=== PATIENT | male | born 1935 | race Caucasian/White ===

== ENCOUNTER 2024-10-26 21:14 | Emergency (ER) | payer MEDICARE, BC, SELFPAY ==
[2024-10-26 21:15] VITALS: BMI 25.1
[2024-10-26 21:26] VITALS: BP 202/84; BP 203/92; PULSE 90; RESP 18; TEMP 36.7; O2SAT 96
--- NOTE | 2024-10-26 21:34 | XR_ITS ---
Examination: CT brain head without contrast. 2-D sagittal coronal reconstructions Date and time of exam:October 26, 2024 at 10:10 PM Indications: Ground-level fall today with injury to the head, head pain CTDI: vol (mGy):40.9 DLP: (mGycm):970 Technique: Multiple CT axial sections of the brain have been obtained, 5 mm slice thickness. Contrast has not been administered. 2-D sagittal, coronal reconstructions have been obtained Low dose protocols were performed. One or more of the following dose reduction techniques were used; automated exposure control, adjustment of the mA and/or KV according to patient size, use of iterative reconstruction technique. Findings: No significant ventricular enlargement. Intra-axial or extra-axial hemorrhage density is not seen. No mass effect or midline shift Basal cisterns are not remarkable. Fourth ventricle is midline. Cranial vault intact. Impression: Negative for acute hemorrhage, mass effect or midline shift
--- NOTE | 2024-10-26 21:34 | XR_ITS ---
Examination: CT cervical spine without contrast 2-D sagittal reconstructions 2-D coronal reconstructions 3-D reconstructions. Exam date and time:October 26, 2024 1010 hrs. Indications: Ground-level fall today with injury to the neck, neck pain CTDI:vol (mGy) 8.14 DLP: (mGycm) 153 Technique: Multiple 2 mm axial sections of the cervical spine have been obtained. The coronal and sagittal reconstructions have been obtained. 3-D reconstructions have been obtained. Low dose protocols were performed. One or more of the following dose reduction techniques were used; automated exposure control, adjustment of the mA and/or KV according to patient size, use of iterative reconstruction technique. Findings: Axial sections demonstrate intact base of the skull. C1 exhibit satisfactory relationship to the odontoid. No acute cervical vertebral body fracture seen. Alignment posterior spinous processes satisfactory. Laminectomies C3-C5 Impression: No acute cervical fracture.
--- NOTE | 2024-10-26 21:47 | PD.EDRME ---
Rapid Medical Screening Exam RME Arrival date/time: 10/26/24 21:14 89 year old female present to Ed for c/o GLF and elevated bp I have greeted and performed a focused initial assessment of this patient. A comprehensive ED assessment and evaluation of the patient, analysis of all test results, and completion of the medical decision making process will be conducted by additional ED providers. Chief Complaint: Fall Time Seen by Provider: 10/26/24 21:20 Vital signs: Vital Signs Temperature 98.0 F 10/26/24 21:26 Pulse Rate 90 10/26/24 21:26 Respiratory Rate 18 10/26/24 21:26 Blood Pressure 202/84 H 10/26/24 21:26 Pulse Oximetry (%) 96 10/26/24 21:26 Oxygen Delivery Method Room Air 10/26/24 21:26
[2024-10-26 21:57] LABS: Basophils % (Auto) 0 % (0-2.5); Eosinophils # (Auto) 0.1 Thou/mm3 (0.0-0.5); Eosinophils % (Auto) 1 % (0-10); Hemoglobin 14.7 g/dL (13.5-16.0); Immature Granulocytes % (Auto) 1 % (0-0); Immature Granulocytes Auto 0.05 Thou/mm3 (0.00-0.00); Lymphocytes # (Auto) 1.2 Thou/mm3 (1.0-4.8); Lymphocytes % (Auto) 13 % (10-50); Mean Corpuscular HGB Conc 33.4 g/dl (31.0-37.0); Mean Corpuscular Hemoglobin 30.8 pg (25.0-35.0); Mean Corpuscular Volume 92 fL (80-100); Monocytes % (Auto) 11 % (0-12); Neutrophils # (Auto) 6.7 Thou/mm3 (1.8-7.7); Neutrophils % (Auto) 74 % (37-80); Nucleated Red Blood Cell % 0 /100 WBC (0); Platelet Count 157 Thou/mm3 (140-440); RDW Standard Deviation 41.9 fL (35.1-43.9); Red Blood Count 4.77 Miln/mm3 (4.50-5.90); White Blood Count 9.1 Thou/mm3 (3.8-10.6)
[2024-10-26 22:08] LABS: Prothrombin Time 10.9 Seconds (9.0-12.2)
[2024-10-26 22:16] LABS: Alanine Aminotransferase 16 U/L (10-49); Albumin, Serum 4.4 gm/dL (3.4-4.8); Albumin/Globulin Ratio 1.5 (1.2-2.2); Alkaline Phosphatase 110 U/L (46-116); Anion Gap 7 (7-16); Aspartate Amino Transferase 27 U/L (0-34); BUN/Creatinine Ratio 25 Ratio (12-20); Bilirubin,Total 0.5 mg/dL (0.3-1.2); Blood Urea Nitrogen 20 mg/dL (9-23); Calcium 9.3 mg/dL (8.3-10.6); Calcium (Corrected) 9.3 mg/dL (8.5-10.1); Carbon Dioxide 26.7 mMol/L (20.0-31.0); Chloride 98 mMol/L (98-107); Creatinine (Component) 0.8 mg/dL (0.6-1.3); Estimated Creatinine Clearance 63.8 mL/min (>60); Glucose 147 mg/dL (74-106); Osmolality,Calculated 270 (275-295); Sodium 132 mMol/L (136-145); Total Protein 7.4 gm/dL (5.7-8.2); eGFR > 60 See Note
[2024-10-26 23:36] VITALS: BP 192/82
[2024-10-26 23:44] VITALS: BP 198/94; BP 202/92; PULSE 78; RESP 18; TEMP 36.8; O2SAT 97
[2024-10-27 00:20] VITALS: BP 199/128; PULSE 80; RESP 19; TEMP 36.6; O2SAT 97
[2024-10-27 01:20] VITALS: BP 190/87; PULSE 86
[2024-10-27] MEDS: hydrALAZINE HCL 25 MG TABLET PO (01:20)
[2024-10-27 02:15] VITALS: BP 181/79; PULSE 78; RESP 20; O2SAT 98
[2024-10-27 03:16] VITALS: BP 188/84; PULSE 81
--- NOTE | 2024-10-27 03:41 | EDNOTE_ITS ---
ED Fall Injury RME/HPI General Chief Complaint: Fall Stated Complaint: FELL, BLOOD PRESSURE HIGH Time Seen by Provider: 10/26/24 21:20 Source: patient and family Arrival date/time: 10/26/24 21:14 Mode of arrival: ambulatory Limitations: no limitations RME / HPI RME / HPI Narrative: 10/26/24 21:14 89 year old female present to Ed for c/o GLF and elevated bp I have greeted and performed a focused initial assessment of this patient. A comprehensive ED assessment and evaluation of the patient, analysis of all test results, and completion of the medical decision making process will be conducted by additional ED providers. --- DR. GAFFNEY MAIN ED EVALUATION: 89-year-old male who presents to the ED for evaluation due to concerns of his elevated blood pressure. Patient notes at about 130AM yesterday, he slipped and fell, hitting his head on the washer. No LOC. Patient reports he then checked his blood pressure and noted it was elevated. His head also felt heavy therefore he decided to come in to be further evaluated. Denies any pain. Patient has a scheduled follow-up with Dr. Peters on Monday10/28/24. Related Data Home Medications ?Medication ?Instructions ?Recorded ?Confirmed telmisartan 80 mg tablet (Micardis) 80 mg PO QDAY 07/20/23 06/11/24 atorvastatin 20 mg tablet 20 mg PO QDAY 03/12/24 06/11/24 cilostazol 50 mg tablet 50 mg PO BID 03/12/24 06/11/24 tamsulosin 0.4 mg capsule 0.8 mg PO QHS 03/12/24 06/11/24 Previous Rx's ?Medication ?Instructions ?Recorded clonidine HCl 0.1 mg tablet 0.1 mg PO BID PRN hypertensive 01/04/24 emergency #30 tabs Allergies Allergy/AdvReac Type Severity Reaction Status Date / Time No Known Allergies Allergy Verified 06/11/24 10:34 Review of Systems Review of Systems Systems Reviewed: All systems reviewed, normal except as documented Past Medical History Past Medical History NEUROLOGIC: Negative Neurological Disorders or Seizures CARDIAC: Positive Cardiac Disorders, Edema and Hypertension; Negative Hypercholesterolemia or Congestive Heart Failure RESPIRATORY: Negative Chronic Obstructive Pulmonary Disease (COPD) or Asthma GASTROINTESTINAL: Negative Gastrointestinal Disorders GENITOURINARY: Negative Genitourinary Disorders or Renal Disease MUSCULOSKELETAL: Positive Musculoskeletal Disorders and Arthritis ENT: Positive Cataracts; Negative Glaucoma, Retinal Detachment, Macular Degeneration or Deafness ENDOCRINE: Negative Endocrine Disorders, Diabetes Mellitus Type 1 or Diabetes Mellitus Type 2 HEMATOLOGIC: Negative Blood Disorders, Anemia, Sickle Cell Disease or Clotting Problems OTHER HISTORY: Positive Falls, Chicken Pox, Measles and Mumps; Negative Hospitalization, Autoimmune Disease, Shingles, Blood Transfusions, Blood Transfusion Reaction, Anesthesia Reactions, Chemotherapy, Radiation Therapy, MRSA or Cancer Family History FAMILY HISTORY: Positive Family Psychiatric Problems, Family Cardiac Disorders, Family Gastrointestinal Problems, Family Cancer and Family Surgery; Negative Family Respiratory Disorders or Family Anesthesia Reaction Surgical History SURGICAL: Negative Cardiac Surgery, Endocrine Surgery, Ear Surgery, Abdominal Surgery, Nephrectomy, Joint Replacement or Neurologic Surgery Social History SMOKING STATUS: Never smoker SUBSTANCE USE: does not use ED Exam Narrative Physical exam: Moving all extremities. No facial drooping. General Limitations: Present no limitations General appearance: Present alert and in no apparent distress Head Head exam: Present atraumatic, normocephalic and normal inspection Eye Eye exam: Present normal appearance, PERRL and EOMI ENT ENT exam: Present normal exam, normal oropharynx, TM's normal bilaterally and normal external ear exam Neck Neck exam: Present normal inspection and full ROM Chest Chest inspection: Present normal inspection and symmetric chest wall rise Respiratory Respiratory exam: Present normal lung sounds bilaterally Cardiovascular Cardiovascular exam: Present regular rate, normal rhythm and normal heart sounds Abdominal Exam Abdominal exam: Present normal bowel sounds Extremities Exam Extremities exam: Present normal inspection and full ROM Back Exam Back exam: Present normal inspection and full ROM Neurological Exam Neurological exam: Present alert, oriented X3 and CN II-XII intact Psychiatric Psychiatric exam: Present normal affect and normal mood; Absent depressed Skin Skin exam: Present warm, dry, intact and normal color Course Quality Measures none Orders Category Date Time Status CT cervical spine wo con Stat Exams 10/26/24 21:[address] head/brain wo con Stat Exams 10/26/24 21:34 Completed CBC Stat Lab 10/26/24 21:45 Completed CMP [Comprehensive Metabolic Panel] Stat Lab 10/26/24 21:45 Completed INR [Prothrombin Time with INR] Stat Lab 10/26/24 21:45 Completed LORazepam [Ativan] Med 10/27/24 03:40 Discontinued 2 mg PO X1 ONE hydrALAZINE HCL [Apresoline] Med 10/27/24 00:41 Discontinued 25 mg PO X1 ONE Vital Signs Vital signs: Vital Signs Temperature 98.0 F 10/26/24 21:26 Pulse Rate 90 10/26/24 21:26 Respiratory Rate 18 10/26/24 21:26 Blood Pressure 202/84 H 10/26/24 21:26 Pulse Oximetry (%) 96 10/26/24 21:26 Oxygen Delivery Method Room Air 10/26/24 21:26 Fall MDM Narrative MDM Narrative:: ? Scribe Attestation: I, Kalina Merino, am scribing for and in the presence of Dr. Hall. Provider Notation: Although this document has been carefully reviewed, there may still be some phonetic and other typographical errors. These errors are purely grammatical due to imperfections in the software program and should not be construed in any way to compromise the substance of the patient's medical care during this visit. Patient data External records reviewed:: [facility] previous records Clinical information provided by:: patient Social determinants that could affect healthcare access:: none Patient has the following chronic illnesses:: Hypertension, Arthritis How is presenting disease/condition affected by chronic disease/condition?: uneffected by Evaluation data The following diagnostics were reviewed and interpreted by me:: lab results and radiology exam(s) Lab and/or radiology exams considered but not ordered:: None Interpretation Summary: I personally reviewed the radiology data and agree with the radiologist's interpretation. Examination: CT cervical spine without contrast Exam date and time:October 26, 2024 1010 hrs. Indications: Ground-level fall today with injury to the neck, neck pain Findings: Axial sections demonstrate intact base of the skull. C1 exhibit satisfactory relationship to the odontoid. No acute cervical vertebral body fracture seen. Alignment posterior spinous processes satisfactory. Laminectomies C3-C5 Impression: No acute cervical fracture. Dictated By: Sav Young MD Examination: CT brain head without contrast. Date and time of exam:October 26, 2024 at 10:10 PM Indications: Ground-level fall today with injury to the head, head pain Findings: No significant ventricular enlargement. Intra-axial or extra-axial hemorrhage density is not seen. No mass effect or midline shift Basal cisterns are not remarkable. Fourth ventricle is midline. Cranial vault intact. Impression: Negative for acute hemorrhage, mass effect or midline shift Dictated By: Sav Young MD Medications / Prescriptions Medications or Prescriptions considered but not ordered:: None Medication administrations:: Medication Administration History Discontinued Medications Hydralazine HCl (Hydralazine Hcl 25 Mg Tablet) 25 mg PO X1 ONE Stop: 10/27/24 00:42 Last Admin: 10/27/24 01:20 Dose: 25 mg Documented By: SYLVIA Lorazepam (Lorazepam 0.5 Mg Tablet) 2 mg PO X1 ONE Stop: 10/27/24 03:41 Last Admin: 10/27/24 03:46 Dose: 2 mg Documented By: SYLVIA As above Consultations Consultation(s) initiated? (list below): No Diagnosis Fall Differential Diagnosis: other (Hypertensive urgency, anxiety, pain) Most likely diagnosis given after review of the tests above:: See clinical impression below Admission Indicated Admission indicated?: not indicated Admission Request Was there a request for admission?: No Disposition Plan Disposition Plan: Discharge Discharge Attestation Discharge Attestation: The patient and all family members were given an opportunity to ask questions and understood the discharge instructions. Discharge instructions specifically effects, indications for sooner follow up or return to the emergency department, and the expected course of current diagnosis. Patient condition: Stable Discharge Plan Plan Patient Disposition: HOME (Self Care) Patient condition on transfer: Stable Prescriptions/Referrals Prescriptions/Med Rec: No Action telmisartan [Micardis] 80 mg tablet 80 mg PO QDAY atorvastatin 20 mg tablet 20 mg PO QDAY cilostazol 50 mg tablet 50 mg PO BID tamsulosin 0.4 mg capsule 0.8 mg PO QHS clonidine HCl 0.1 mg tablet 0.1 mg PO BID PRN (Reason: hypertensive emergency) Qty: 30 0RF Referrals: Feliciano Peters MD [Primary Care Provider] - In 1 week Problem List Clinical Impression: Hypertension, Fall Patient/Caregiver Discharge Instructions Education Materials: Preventing Falls How to ..., ED Hypertension, Established Additional Instructions: Avoid going upstairs or outside for the next 6 to 8 hours since you are giving a little bit of Ativan. No alcohol. Take your blood pressure every day for the next 7 days approximately at the same time and follow-up with your primary care in the next 48 to 72 hours. Return to emergency department for any worsening symptoms, or any other concerns. Print Language: Welsh Stand Alone Forms: [employer] Award Info., Patient Portal Info Letter
[2024-10-27] MEDS: LORazepam 0.5 MG TABLET 2 MG PO (03:46)
[2024-10-27 04:26] VITALS: BP 168/76; PULSE 71; RESP 20; O2SAT 95
== END 2024-10-27 04:40 | disposition home or self-care (01) ==
PROVIDERS: Physician Assistant; Emergency Provider Emergency Medicine; PCP Internal Medicine
DX: I10 Essential (primary) hypertension (principal)
CPT/HCPCS: 36415; 70450; 72125; 80053; 85025; 85610; 99284; A9270

== ENCOUNTER 2025-08-21 07:41 | Emergency (ER) | payer MEDICARE, BC, SELFPAY ==
--- NOTE | 2025-08-21 07:43 | EDNOTE_ITS ---
ED Dizzyness RME/HPI General Chief Complaint: Dizziness Stated Complaint: DIZZINESS Time Seen by Provider: 08/21/25 07:52 Arrival date/time: 08/21/25 07:41 RME / HPI RME / HPI Narrative: See MDM for Dr. Spangler's HPI documentation. Related Data Home Medications ?Medication ?Instructions ?Recorded ?Confirmed telmisartan 80 mg tablet (Micardis) 80 mg PO QDAY 06/2406/11/24 atorvastatin 20 mg tablet 20 mg PO QDAY 03/12/2406/11 cilostazol 50 mg tablet 50 mg PO BID 03/12/24 tamsulosin 0.4 mg capsule 0.8 mg PO QHS 03/12/2406/11 Previous Rx's ?Medication ?Instructions ?Recorded clonidine HCl 0.1 mg tablet 0.1 mg PO BID PRN hyperten sive 01/04/24 emergency #30 tabs clonidine HCl 0.1 mg tablet 0.1 mg PO BID #60 tabs meclizine 25 mg tablet 25 mg PO BID PRN dizziness # 20 tabs 08/21/25 ondansetron 4 mg disintegrating 4 mg PO TID PRN nausea and 08/21/25 tablet vomiting 30 days #10 tabs scopolamine base 1 mg over 3 days 1 mg topical .q72 ho urs PRN 08/21/25 transdermal patch (Transderm-Scop) dizziness or vertig o #4 ea Allergies Allergy/AdvReac Type Severity Reaction Status Date / Time No Known Allergies Allergy Verified 06/11/24 10:34 Review of Systems Review of Systems Systems Reviewed: All systems reviewed, normal except as documented Past Medical History Past Medical History CARDIAC: Positive Cardiac Disorders, Edema and Hypertension MUSCULOSKELETAL: Positive Musculoskeletal Disorders and Arthritis ENT: Positive Cataracts OTHER HISTORY: Positive Falls, Chicken Pox, Measles and Mumps Family History FAMILY HISTORY: Positive Family Psychiatric Problems, Family Cardiac Disorders, Family Gastrointestinal Problems, Family Cancer and Family Surgery Social History SMOKING STATUS: Never smoker SUBSTANCE USE: does not use ED Exam Narrative Physical exam: See [facility] for Dr. Spangler's physical exam documentation. Course Quality Measures none Orders Category Date Time Status Bedside COVID-19 Antigen Test NOW Care 08/21/25 07:48 Completed EKG (ED ONLY) *Do not use* NOW Care 08/21/25 07:51 Completed Saline [Insert IV] NOW Care 08/21/25 07:48 Completed Straight [In and Out Catheter] X1 Care 08/21/25 07:[address] head/brain wo con Stat Exams 08/21/25 07:51 Completed EKG (ED Only) Stat Exams 08/21/25 07:51 Draft XR chest 1V portable Stat Exams 08/21/25 07:51 Completed BNP [B-Type Natriuretic Peptide] Stat Lab 08/21/25 08:31 Completed Beta Hydroxybutyrate Stat Lab 08/21/25 08:31 Completed Bilirubin,Direct Stat Lab 08/21/25 08:31 Completed Blood Culture (Lab) Stat Lab 08/21/25 08:30 Received CBC Stat Lab 08/21/25 08:31 Completed CMP [Comprehensive Metabolic Panel] Stat Lab 08/21/25 08:31 Completed CRP [C-Reactive Protein] Stat Lab 08/21/25 08:31 Completed ESR [Sed Rate (ESR)] Stat Lab 08/21/25 08:31 Completed Influenza A & B Rapid Panel Stat Lab 08/21/25 08:34 Completed Lactate (Lactic Acid) Stat Lab 08/21/25 08:31 Completed Magnesium Stat Lab 08/21/25 08:31 Completed Procalcitonin Stat Lab 08/21/25 08:31 Completed TSH [Thyroid Stimulating Hormone] Stat Lab 08/21/25 08:31 Completed Troponin I Stat Lab 08/21/25 08:31 Completed UA, C/S IF [Urinalysis, C/S if Indicated] Stat Lab 08/21/25 09:45 Completed Meclizine HCl [Antivert] Med 08/21/25 07:48 Discontinued 25 mg PO X1 ONE Ondansetron Inj [Zofran Inj] Med 08/21/25 07:48 Discontinued 4 mg IVP X1 ONE Scopolamine [Transderm-Scop Patch] Med 08/21/25 07:48 Discontinued 1 mg TOP X1 ONE Sodium Chloride 0.9% 1000 ml [Ns] 1,000 ml Med 08/21/25 07:48 Discontinued IV 999 mls/hr cloNIDine HCL [Catapres] Med 08/21/25 08:13 Discontinued 0.3 mg PO X1 ONE Vital Signs Vital signs: Vital Signs Temperature 98.7 F 08/21/25 07:51 Pulse Rate 72 08/21/25 07:51 Respiratory Rate 19 08/21/25 07:51 Blood Pressure 206/76 H 08/21/25 07:51 Pulse Oximetry (%) 95 08/21/25 07:51 Oxygen Delivery Method Room Air 08/21/25 07:51 Pulse ox is 95% on room air which is adequate. Dizziness MDM Narrative MDM Narrative:: This section includes all my notes and documentations, including HPI, PE, and ED course. Masood Spangler MD HPI: 89-year-old male here with dizziness just [employer]. Woke up to use the bathroom, he could hardly walk due to severe dizziness. Describes feeling severely drunk and seasick, with moving sensation and nausea and vomiting. No headache. No speech or vision impairment. No right-sided weakness or left-sided weakness. No chest pain. No other complaints. ROS: All negative except as documented in HPI. Physical Exam: General: Alert and oriented. No acute distress when moving still. High BP noted. Eyes: Conjunctivae and lids clear. EOMI. PERRL. ENT: No nasal congestion. Neck: Supple. No carotid bruit. No JVD. Heart: RRR. Lungs: No respiratory distress. Good air movement. No rhonchi, wheezing, rales. Abdomen: Soft and nontender. Normal bowel sounds. No distension. No rebound or guarding. Back: No CVA tenderness. Legs: No clubbing, cyanosis, edema. Skin: Warm and dry. Neuro: Alert and oriented X 3. Cranial Nerves II-XII grossly intact. No peripheral motor deficits. I reviewed EMS notes. I reviewed all diagnostic test results: My interpretation of the EKG is: Sinus rhythm (74 bpm) with nonspecific ST-T changes. My interpretation of the chest x-ray is: NAD My review of the CT head report is: No acute findings. Blood tests and urine tests unremarkable. Covid/Influenza are negative. At this point, diagnoses include: Vertigo Hypertension Treatment here included: IV fluid Scopolamine 1 mg patch Zofran 4 mg IV Oral Meclizine 25 mg Oral Clonidine 0.3 mg Significant improvement noted. Recommended more outpatient management. Based on my best medical judgment, made decision no further evaluation or treatment indicated at this time. Patient understands and agrees to the discharge instructions customized and printed, see below. Discharge instructions from Dr. Spangler: ? After extensive evaluation, there is no life-threatening condition.? Such as stroke or brain tumor or heart attack. -- Your severe symptoms are due to vertigo.? This is an inner ear problem that makes you feel like you are drunk or seasick.? See attached handout. -- Use scopolamine patch and/or meclizine for your severe symptoms. -- And Zofran for nausea/vomiting.? And increase oral fluid to prevent dehydration.? Maintain clear urine.? If dark or yellow, increase oral fluid. -- And do everything very slowly.? Including moving your head.? And when you sit up or stand up, wait a minute before you progress.? -- Take Clonidine 0.1 mg pill(s) every 12 hours as needed based on SBP (higher number of BP). SBP > 140, take one pill. SBP > 160, take two pills. SBP > 180, take three pills. SBP > 200, take four pills. -- See your private doctor on 08/22/2025 for recheck and further care. Ask to review all test results and official radiology reports, to make sure you receive all necessary follow-ups and monitoring. If needed, ask to help you get more care not available here in the ER.? Such as MRI imaging of your brain, physical therapy, table tilt test, and referrals to see specialists (such as neurologist and ENT specialist). -- Seek immediate medical care with worsening or with any concerns. Masood Spangler MD Patient data External records reviewed:: [facility] previous records and EMS form Clinical information provided by:: patient and EMS Social determinants that could affect healthcare access:: none Patient has the following chronic illnesses:: Hypertension How is presenting disease/condition affected by chronic disease/condition?: exacerbated by Evaluation data The following diagnostics were reviewed and interpreted by me:: lab results, radiology exam(s) and EKG tracing(s) (My interpretation of the EKG is: Sinus rhythm (74 bpm) with nonspecific ST-T changes. Masood Spangler MD) Lab and/or radiology exams considered but not ordered:: None Interpretation Summary: I reviewed all diagnostic test results: My interpretation of the EKG is: Sinus rhythm (74 bpm) with nonspecific ST-T changes. My interpretation of the chest x-ray is: NAD My review of the CT head report is: No acute findings. Blood tests and urine tests unremarkable. Covid/Influenza are negative. Medications / Prescriptions Medications or Prescriptions considered but not ordered:: None Medication administrations:: Medication Administration History Discontinued Medications Clonidine (Clonidine Hcl 0.1 Mg Tablet) 0.3 mg PO X1 ONE Stop: 08/21/25 08:14 Last Admin: 08/21/25 08:29 Dose: 0.3 mg Documented By: JAKOB Sodium Chloride (Ns) 1,000 mls @ 999 mls/hr IV .Q1H1M ONE Stop: 08/21/25 08:48 Last Infusion: 08/21/25 09:15 Dose: Infused Documented By: Admin: 08/21/25 08:12 Dose: 999 mls/hr Documented By: JAKOB Meclizine HCl (Meclizine Hcl 25 Mg Tablet) 25 mg PO X1 ONE Stop: 08/21/25 07:49 Last Admin: 08/21/25 08:13 Dose: 25 mg Documented By: JAKOB Ondansetron HCl (Ondansetron Inj 2 Mg/Ml Inj 2 Ml) 4 mg IVP X1 ONE; Protocol Stop: 08/21/25 07:49 Last Admin: 08/21/25 08:13 Dose: 4 mg Documented By: JAKOB Scopolamine (Scopolamine 1 Mg Tdsy) 1 mg TOP X1 ONE Stop: 08/21/25 07:49 Last Admin: 08/21/25 08:12 Dose: 1 mg Documented By: JAKOB Treatment here included: IV fluid Scopolamine 1 mg patch Zofran 4 mg IV Oral Meclizine 25 mg Oral Clonidine 0.3 mg Consultations Consultation(s) initiated? (list below): No Diagnosis Dizziness Differential Diagnosis: adverse reaction to drug, benign paroxysmal positional vertigo, orthostatic hypotension, cerebrovascular accident and transient cerebral ischemia Most likely diagnosis given after review of the tests above:: Vertigo Hypertension Admission Indicated Admission indicated?: not indicated Explain why admission is indicated or not indicated:: With significant improvement and no condition needing emergent intervention, there was no indication for admission. Admission Request Was there a request for admission?: No Disposition Plan Disposition Plan: Discharge Discharge Attestation Discharge Attestation: The patient and all family members were given an opportunity to ask questions and understood the discharge instructions. Discharge instructions specifically effects, indications for sooner follow up or return to the emergency department, and the expected course of current diagnosis. Patient condition: Stable Discharge Plan Plan Patient Disposition: HOME (Self Care) Prescriptions/Referrals Prescriptions/Med Rec: New clonidine HCl 0.1 mg tablet 0.1 mg PO BID Qty: 60 0RF meclizine 25 mg tablet 25 mg PO BID PRN (Reason: dizziness) Qty: 20 0RF scopolamine base [Transderm-Scop] 1 mg over 3 days patch 3 day 1 mg topical .q72 hours PRN (Reason: dizziness or vertigo) Qty: 4 0RF ondansetron 4 mg tablet,disintegrating 4 mg PO TID PRN (Reason: nausea and vomiting) 30 Days Qty: 10 0RF No Action telmisartan [Micardis] 80 mg tablet 80 mg PO QDAY atorvastatin 20 mg tablet 20 mg PO QDAY cilostazol 50 mg tablet 50 mg PO BID tamsulosin 0.4 mg capsule 0.8 mg PO QHS clonidine HCl 0.1 mg tablet 0.1 mg PO BID PRN (Reason: hypertensive emergency) Qty: 30 0RF Referrals: Feliciano Peters MD [Primary Care Provider, Internal Medicine] - In 1 week Problem List Clinical Impression: Vertigo, Hypertension Patient/Caregiver Discharge Instructions Discharge Activity: activity as tolerated Education Materials: ED Hypertension, Established, ED Vertigo, Unspecified Additional Instructions: Discharge instructions from Dr. Spangler: ? After extensive evaluation, there is no life-threatening condition.? Such as stroke or brain tumor or heart attack. -- Your severe symptoms are due to vertigo.? This is an inner ear problem that makes you feel like you are drunk or seasick.? See attached handout. -- Use scopolamine patch and/or meclizine for your severe symptoms. -- And Zofran for nausea/vomiting.? And increase oral fluid to prevent dehydration.? Maintain clear urine.? If dark or yellow, increase oral fluid. -- And do everything very slowly.? Including moving your head.? And when you sit up or stand up, wait a minute before you progress.? -- Take Clonidine 0.1 mg pill(s) every 12 hours as needed based on SBP (higher number of BP). SBP > 140, take one pill. SBP > 160, take two pills. SBP > 180, take three pills. SBP > 200, take four pills. -- See your private doctor on 08/22/2025 for recheck and further care. Ask to review all test results and official radiology reports, to make sure you receive all necessary follow-ups and monitoring. If needed, ask to help you get more care not available here in the ER.? Such as MRI imaging of your brain, physical therapy, table tilt test, and referrals to see specialists (such as neurologist and ENT specialist). -- Seek immediate medical care with worsening or with any concerns. Print Language: Latvian Stand Alone Forms: [employer] Award Info., Patient Portal Info Letter
[2025-08-21 07:47] VITALS: PULSE 76; RESP 16; O2SAT 95; BMI 26.7
[2025-08-21 07:51] VITALS: BP 202/80; BP 206/76; PULSE 72; RESP 19; TEMP 37.1; O2SAT 95
--- NOTE | 2025-08-21 07:51 | EKG_ITS ---
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
--- NOTE | 2025-08-21 07:51 | XR_ITS ---
EXAMINATION: AP chest portable supine single view TECHNIQUE: AP portable supine chest single view Date and time: August 21, 2025, 0842 hours INDICATION: Dyspnea shortness of breath today FINDINGS: Normal heart size Mild scarring in the left upper lobe No pulmonary edema or lobar pneumonia Prominent osteopenia IMPRESSION: No pulmonary edema or lobar pneumonia
--- NOTE | 2025-08-21 07:51 | XR_ITS ---
Examination: CT brain head without contrast. 2-D sagittal coronal reconstructions Date and time of exam: August 21, 2025, 1113 hours INDICATIONS: Head pain dizziness today COMPARISON: October 26, 2024 CTDI: vol (mGy): 51 DLP: (mGycm): 1007 Technique: Multiple CT axial sections of the brain have been obtained, 5 mm slice thickness. Contrast has not been administered. 2-D sagittal, coronal reconstructions have been obtained Low dose protocols were performed. One or more of the following dose reduction techniques were used; automated exposure control, adjustment of the mA and/or KV according to patient size, use of iterative reconstruction technique. Findings: No significant ventricular enlargement. Intra-axial or extra-axial hemorrhage density is not seen. No mass effect or midline shift Basal cisterns are not remarkable. Fourth ventricle is midline. Cranial vault intact. Impression: Negative for acute hemorrhage, mass effect or midline shift
[2025-08-21] MEDS: SCOPOLAMINE 1 MG TDSY TOP (08:12)
[2025-08-21] MEDS: SODIUM CHLORIDE 0.9% 1000 ML 1,000 ML 999 ML IV (08:12)
[2025-08-21] MEDS: MECLIZINE HCL 25 MG TABLET PO (08:13)
[2025-08-21] MEDS: ONDANSETRON INJ 2 MG/ML INJ 2 ML 4 MG IVP (08:13)
[2025-08-21 08:29] VITALS: BP 192/73; PULSE 67
[2025-08-21 09:03] LABS: Lactate (Lactic Acid) 2.5 mMol/L (0.4-2.0)
[2025-08-21 09:05] VITALS: BP 162/62; PULSE 60; RESP 18; TEMP 36.7; O2SAT 99
[2025-08-21 09:07] LABS: Beta Hydroxybutyrate 0.2 mmol/L (<0.6)
[2025-08-21 09:17] LABS: Basophils # (Auto) 0.0 Thou/mm3 (0.0-0.2); Basophils % (Auto) 0 % (0-2.5); Eosinophils # (Auto) 0.3 Thou/mm3 (0.0-0.5); Eosinophils % (Auto) 4 % (0-10); Hematocrit 46.8 % (41.0-53.0); Hemoglobin 15.5 g/dL (13.5-16.0); Immature Granulocytes Auto 0.05 Thou/mm3 (0.00-0.00); Lymphocytes # (Auto) 1.1 Thou/mm3 (1.0-4.8); Lymphocytes % (Auto) 16 % (10-50); Mean Corpuscular HGB Conc 33.1 g/dl (31.0-37.0); Mean Corpuscular Hemoglobin 30.9 pg (25.0-35.0); Mean Corpuscular Volume 93 fL (80-100); Monocytes # (Auto) 0.8 Thou/mm3 (0.0-0.8); Monocytes % (Auto) 11 % (0-12); Neutrophils # (Auto) 4.7 Thou/mm3 (1.8-7.7); Neutrophils % (Auto) 68 % (37-80); Nucleated Red Blood Cell # 0.00 Thou/mm3 (0.00-0.00); Nucleated Red Blood Cell % 0 /100 WBC (0); Platelet Count 205 Thou/mm3 (140-440); RDW Standard Deviation 42.6 fL (35.1-43.9); Red Blood Count 5.02 Miln/mm3 (4.50-5.90); White Blood Count 7.0 Thou/mm3 (3.8-10.6)
[2025-08-21 09:28] LABS: Sed Rate (ESR) 19 mm/hr (0-20)
[2025-08-21 09:48] LABS: B-Type Natriuretic Peptide 35 pg/mL (0-100)
[2025-08-21 09:52] LABS: Alanine Aminotransferase 16 U/L (10-49); Albumin, Serum 4.6 gm/dL (3.4-4.8); Albumin/Globulin Ratio 2.0 (1.2-2.2); Alkaline Phosphatase 102 U/L (46-116); Anion Gap 10 (7-16); Aspartate Amino Transferase 24 U/L (0-34); BUN/Creatinine Ratio 23 Ratio (12-20); Bilirubin,Direct 0.2 mg/dL (0.0-0.3); Bilirubin,Total 0.6 mg/dL (0.3-1.2); Blood Urea Nitrogen 18 mg/dL (9-23); C-Reactive Protein < 0.5 mg/dL (0.0-0.9); Calcium 9.1 mg/dL (8.3-10.6); Calcium (Corrected) 9.1 mg/dL (8.5-10.1); Carbon Dioxide 27.8 mMol/L (20.0-31.0); Chloride 97 mMol/L (98-107); Creatinine (Component) 0.8 mg/dL (0.6-1.3); Estimated Creatinine Clearance 62.6 mL/min (>60); Globulin 2.3 gm/dL (2.3-3.5); Glucose 126 mg/dL (74-106); Magnesium 2.2 mg/dL (1.6-2.6); Osmolality,Calculated 274 (275-295); Potassium 4.2 mMol/L (3.4-5.1); Procalcitonin < 0.04 ng/ml (0.0-0.49); Sodium 135 mMol/L (136-145); Thyroid Stimulating Hormone 1.88 uIU/mL (0.55-4.78); Total Protein 6.9 gm/dL (5.7-8.2); Troponin I < 0.002 ng/mL (0.0-0.045); eGFR > 60 See Note
[2025-08-21 09:52] LABS: Collection Type, Urine Clean Catch
[2025-08-21 10:08] LABS: Bilirubin,Urine Negative (Negative); Blood,Urine Negative (Negative); Clarity,Urine Clear (Clear/Hazy); Color,Urine Lt-Yellow (Lt Yel-Yel); Culture Indicated,Urine Not Indicated; Glucose, Urine Negative (Negative); Ketones,Urine Negative (Negative); Leukocyte Esterase,Urine Negative (Negative); Nitrite,Urine Negative (Negative); PH,Urine 6.5 (5.0-7.0); Protein,Urine Negative (Neg - Trace); RBC,Urine 1 /hpf (0-3); Specific Gravity,Urine 1.014 (1.001-1.035); Squamous Epithelial Cell,Urine < 1 /hpf (0-5); Urobilinogen,Urine Negative mg/dL (0.0-1.0); WBC,Urine 1 /hpf (0-5)
[2025-08-21 10:09] LABS: Influenza A Ag Negative; Influenza B Ag Negative
[2025-08-21 12:01] LABS: Reflex Lactate? Y
[2025-08-21 12:36] VITALS: BP 140/77; PULSE 58; RESP 16; TEMP 36.7; O2SAT 99
== END 2025-08-21 12:37 | disposition home or self-care (01) ==
PROVIDERS: Emergency Provider Emergency Medicine; PCP Internal Medicine
DX: F10.129 Alcohol abuse with intoxication, unspecified (principal); I10 Essential (primary) hypertension; Y90.9 Presence of alcohol in blood, level not specified
CPT/HCPCS: 36415; 70450; 71045; 80053; 81001; 82010; 82248; 83605; 83735; 83880; 84145; 84443; 84484; 85025; 85652; 86140; 87040; 87502; 87811; 93005; 96361; 96374; 99285; J2405; J7030; A9270